=== PATIENT | male | born 1945 | race Native Hawaiian/Other Pacific Islander ===

== ENCOUNTER 2019-04-07 04:02 | Outpatient (CLI) | payer OTHER, MEDICARE ==
[2019-04-07] MEDS ORDERED: ANORO ELLIPTA 61 AER INH (08:47)
[2019-04-07] MEDS ORDERED: LISI5TAB10 PO (08:48)
[2019-04-07] MEDS ORDERED: LOVA20TA PO (08:48)
[2019-04-07] MEDS ORDERED: CARV12.5 PO (08:49)
[2019-04-07] MEDS ORDERED: EUTHYROX88 MCG PO (08:49)
[2019-04-07] MEDS ORDERED: SPIRONOLACT25 MG PO (08:49)
[2019-04-07] MEDS ORDERED: PAROXETINE30 MG PO (08:50)
[2019-04-07] MEDS ORDERED: POT CL MICRO20 MEQ PO (08:50)
[2019-04-07] MEDS ORDERED: TERAZOSIN10 MG PO (08:51)
[2019-04-07] MEDS ORDERED: DOCU100C10 PO (08:51)
[2019-04-07] MEDS ORDERED: CARV6.25 PO (08:52)
[2019-04-07] MEDS ORDERED: ALBUTEROL0.083 % INH (08:53)
[2019-04-07] MEDS ORDERED: ASPIRIN 81 LOW81 MG PO (08:54)
[2019-04-07] MEDS ORDERED: PSYL0.52C PO (08:56)
[2019-04-07] MEDS ORDERED: [UNRECOGNIZED DRUG - CODE] PO (08:56)
[2019-04-07] MEDS ORDERED: MELATONIN5 M6 PO (08:57)
[2019-04-07] MEDS ORDERED: ALBU90AE13 INH (08:58)
[2019-04-13] MEDS ORDERED: LISI5TAB10 PO (11:32)
[2019-04-13] MEDS ORDERED: DOCU100C10 PO (11:33)
[2019-04-13] MEDS ORDERED: LEVAQUIN250 MG PO (11:35)
[2019-04-13] MEDS ORDERED: FURO40TA93 PO (11:35)
== END 2019-04-07 04:04 | disposition short-term general hospital (02) ==
LOC: AMB 04:02
DX: R10.84 Generalized abdominal pain (principal)
CPT/HCPCS: A0425; A0426

== ENCOUNTER 2019-04-07 04:14 | Inpatient (IN) | payer OTHER, MEDICARE ==
[2019-04-07] VITALS (8 sets, daily range): BP systolic 148–196; BP diastolic 79–98; TEMP 98.1–99.2; Ht 172.7 cm; Wt 83.9 kg
[~2019-04-07] VITALS: Ht 172.7 cm; Wt 83.9 kg
[2019-04-07 04:52] LABS: PLATELET COUNT 170 K/uL (142-355)
[2019-04-07 05:07] LABS: POTASSIUM 3.9 mmol/L (3.6-5.2); SODIUM 138 mmol/L (136-145)
[2019-04-07 05:41] LABS: PARTIAL THROMBOPLASTIN TIME 28.1 SECONDS (24.5-33.6)
[2019-04-07] MEDS ORDERED: ANORO ELLIPTA 61 AER INH (08:47)
[2019-04-07] MEDS ORDERED: LOVA20TA PO (08:48)
[2019-04-07] MEDS ORDERED: LISI5TAB10 PO (08:48)
[2019-04-07] MEDS ORDERED: SPIRONOLACT25 MG PO (08:49)
[2019-04-07] MEDS ORDERED: CARV12.5 PO (08:49)
[2019-04-07] MEDS ORDERED: EUTHYROX88 MCG PO (08:49)
[2019-04-07] MEDS ORDERED: PAROXETINE30 MG PO (08:50)
[2019-04-07] MEDS ORDERED: POT CL MICRO20 MEQ PO (08:50)
[2019-04-07] MEDS ORDERED: DOCU100C10 PO (08:51)
[2019-04-07] MEDS ORDERED: TERAZOSIN10 MG PO (08:51)
[2019-04-07] MEDS ORDERED: CARV6.25 PO (08:52)
[2019-04-07] MEDS ORDERED: ALBUTEROL0.083 % INH (08:53)
[2019-04-07] MEDS ORDERED: ASPIRIN 81 LOW81 MG PO (08:54)
[2019-04-07] MEDS ORDERED: PSYL0.52C PO (08:56)
[2019-04-07] MEDS ORDERED: [UNRECOGNIZED DRUG - CODE] PO (08:56)
[2019-04-07] MEDS ORDERED: MELATONIN5 M6 PO (08:57)
[2019-04-07] MEDS ORDERED: ALBU90AE13 INH (08:58)
--- NOTE | 2019-04-07 16:53 | NUR ---
HHN GIVEN AT 1324. PATIENT FOUND ON 3LPM WITH SPO2 OF 88%. AFTER HHN, NC WAS INCREASED TO 6LPM. SPO2 WAS ONLY MEASURING 81%/ HR 92. PATIENT WAS RECHECKED AT 1351 AND SPO2 WAS FOUND TO BE 78% ON 6LPM/HR 93. PATIENT STATES THAT HE WEARS 5LPM HOME O2 AND NORMALLY SATS BETWEEN 90-94% AT HOME. PATIENT WAS PLACED ON NONREBREATHER AT 15LPM TO GET A SPO2 OF 92%. DR. Alfonso GRIFFIN NOTIFIED. THE PATIENT WAS PLACED ON CONTINUOUS PULSE OX.
--- NOTE | 2019-04-08 00:15 | NUR ---
NG TUBE REPLACED WITH 16 NG TUBE DUE TO DETAINEE PULLING NG TUBE OUT WHEN TUBING BECAME TWISTED IN IV AND O2 SAT MONITORING TUBING. PT TOLERATED PROCEDURE WELL.XRAY NOTIFIED AND AND AWAITNG XRAY TO CONFIRM PLACEMENT AT PRESENT.
--- NOTE | 2019-04-08 01:05 | NUR ---
DR. OAKES NOTIFIED OF NG TUBE PLACEMENT XRAY READING, TO ADVANCE NG TUBE 5 CM. AND DEVELOPING R. BASILAR INFILTRATE. T.O. PER DR. OAKES RECEIVED FOR ROCEPHIN 1 GRAM IV DAILY. ORDERS NOTED AND FOLLOWED THROUGH.
--- NOTE | 2019-04-08 03:35 | NUR ---
XRAY IN PT'S ROOM TO CHECK PLACEMENT OF NG TUBE.
--- NOTE | 2019-04-08 03:50 | NUR ---
PT C/O SOB, RESPIRATORY NOTIFIED AND BREATHING TX COMPLETED,
[2019-04-08 03:55] VITALS: BP 173/93; TEMP 98.7
[2019-04-08 05:19] LABS: PLATELET COUNT 155 K/uL (142-355)
[2019-04-08 05:51] LABS: POTASSIUM 3.7 mmol/L (3.6-5.2)
[2019-04-08 08:00] VITALS: BP 167/98; TEMP 98
--- NOTE | 2019-04-08 09:37 | NUR ---
DR. ELIZ GRIFFIN HERE ASSESSING PATIENT REGARDING SBO. NEW ORDERS WERE GIVEN TO CLAMP NG TUBE FOR 3 HOURS AND THEN RELEASE AND PLACED BACK TO [facility] AND MONITOR PATIENT FOR ANY NAUSEA OR VOMITING. 0945-PATIENT NG TUBE CLAMPED. 1030-PATIENT ASSESSED AND HE DENIES ANY N/V. 1300- NG TUBE CONNECTED TO [facility]CS 1330- NG TUBE CLAMPED. PATIENT MONITORED FOR ANY NAUSEA. 1541- CALLED AND SPOKE TO AND NEW ORDERS WERE GIVEN TO DISCONTINUE NG TUBE AND START PATIENT ON A CLEAR LIQUID DIET. 1550-NG TUBE REMOVED WITHOUT DIFFICULTY. PATIENT GIVEN GATORADE, JELLO AND APPLE JUICE TO DRINK. PATIENT TOLERATED WELL.
--- NOTE | 2019-04-08 11:50 | NUR ---
SPOKE WITH PATIENT CONCERNING HOME HEALTH SERVICES. 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
[2019-04-08 12:00] VITALS: BP 158/89; TEMP 98.2
[2019-04-08 16:00] VITALS: BP 169/99; TEMP 97.7
[2019-04-08 19:53] VITALS: BP 154/82; TEMP 98.5
[2019-04-09] VITALS: BP 140/84; TEMP 97.4
--- NOTE | 2019-04-09 00:30 | NUR ---
PT TANGLED UP IN IV TUBING AND PULLED IV OUT, IV SITE OBTAINED X NUMEROUS ATTEMPTS WITH 18 GUAGE TO LEFT HAND BY MELONY ESQUEDA RN. IVF'S OF D 5 06/12 NS RESTARTED @ 125 CC/HR W/O DIFF. PT TOLERATED WELL.
--- NOTE | 2019-04-09 03:45 | NUR ---
PT NOTED WITH LABORED BREATHING AT THIS TIME, REQUESTED BREATHING TX.O2 SAT 96%-100%. UPPER LUNG QUIÑONEZ DIMINISHED AT PRESENT.
[2019-04-09 04:00] VITALS: BP 138/82; TEMP 98.5
--- NOTE | 2019-04-09 04:05 | NUR ---
PT. LABORED BREATHING INTENSIFIED FOLLOWING BREATHING TX, DR OAKES NOTIFIED OF PT'S CONDITION, AND IS AT PT'S BEDSIDE.RECEIVED V.O. FOR LASIX 20MG IV AND ABG NOW.
--- NOTE | 2019-04-09 04:45 | NUR ---
DR. OAKES NOTIFIED OF PT'S ABG RESULTS AND V.O. RECEIVED FOR CHEST XRAY, CBC, CMP, AND LACTIC THIS AM.
[2019-04-09 05:38] LABS: PLATELET COUNT 154 K/uL (142-355)
[2019-04-09 08:00] VITALS: BP 177/83; TEMP 97.5
[2019-04-09 12:00] VITALS: BP 145/94; TEMP 98
[2019-04-09 16:00] VITALS: BP 168/90; TEMP 97.4
[2019-04-09 20:00] VITALS: BP 161/92; TEMP 97.8
[2019-04-10] VITALS: BP 153/89; TEMP 96.8
[2019-04-10 03:53] VITALS: BP 156/92; TEMP 97.5
[2019-04-10 05:37] LABS: POTASSIUM 3.4 mmol/L (3.6-5.2)
--- NOTE | 2019-04-10 07:41 | NUR ---
PATIENT IS RESTING WITH EYES CLOSED UPON ENTERING ROOM. PATIENT AROUSES TO VERBAL COMMAND. SHIFT ASSESSMENT COMPLETED.PATIENT DENIES ANY PAIN. PATIENT REPORTS NO BOWEL MOVEMENT SINCE 04/06/19. PATIENT HAS AN IV 22G TO THE LEFT HAND INTACT WITH NO S/S OF INFILTRATION OR PHLEBITIS NOTED. PATIENT REMAINS ON NON REBREATHER AT THIS TIME WITH O2 SATS AT 96%. FALL PRECAUTIONS IN PLACE WITH BED IN LOWEST POSITION, AND LOCKED IN PLACE, SIDERAILS UP X2.
[2019-04-10 08:00] VITALS: BP 140/79; TEMP 97.6
[2019-04-10 12:00] VITALS: BP 172/101; TEMP 97.7
[2019-04-10] MEDS ORDERED: IPRATROPIUM/ INH (14:54)
[2019-04-10] MEDS ORDERED: LEVAQUIN 500MG TAB PO (14:54)
[2019-04-10] MEDS ORDERED: PRED10TA27 PO (14:57)
[2019-04-13] MEDS ORDERED: LISI5TAB10 PO (11:32)
[2019-04-13] MEDS ORDERED: DOCU100C10 PO (11:33)
[2019-04-13] MEDS ORDERED: LEVAQUIN250 MG PO (11:35)
[2019-04-13] MEDS ORDERED: FURO40TA93 PO (11:35)
== END 2019-04-10 16:15 | disposition home or self-care (01) | DRG 390 ==
LOC: ED 04:14 → MED/SURG 09:05
PROVIDERS: Hospitalist; Internal Medicine; Student in an Organized Health Care Education/Training Program; ADMIT Emergency Medicine
DX: K56.690 Other partial intestinal obstruction (principal); I10 Essential (primary) hypertension; K21.9 Gastro-esophageal reflux disease without esophagitis; J84.10 Pulmonary fibrosis, unspecified; J44.9 Chronic obstructive pulmonary disease, unspecified; E78.00 Pure hypercholesterolemia, unspecified; M15.8 Other polyosteoarthritis; R51 Headache; E83.42 Hypomagnesemia; E83.51 Hypocalcemia; D63.8 Anemia in other chronic diseases classified elsewhere
CPT/HCPCS: 36415; 36600; 43754; 80048; 80053; 81000; 82150; 82550; 82805; 83605; 83690; 83735; 84484; 85027; 85610; 85730; 93005; 94640; 94664; 94760; 96360; 96361; 96375; 96376; 99284; J0456; J0610; J0696; J1650; J1885; J1940; J2060; J2270; J2405; J2930; J3475; J3490; Q9963

== ENCOUNTER 2019-04-11 14:04 | Outpatient (CLI) | payer OTHER, MEDICARE ==
[~2019-04-11 14:04] MED LIST: ALBU90AE13 INH; ALBUTEROL0.083 % INH; ANORO ELLIPTA 61 AER INH; ASPIRIN 81 LOW81 MG PO; CARV12.5 PO; CARV6.25 PO; DOCU100C10 PO; EUTHYROX88 MCG PO; IPRATROPIUM/ INH; LEVAQUIN 500MG TAB PO; LISI5TAB10 PO; LOVA20TA PO; MELATONIN5 M6 PO; PAROXETINE30 MG PO; POT CL MICRO20 MEQ PO; PRED10TA27 PO; PSYL0.52C PO; SPIRONOLACT25 MG PO; TERAZOSIN10 MG PO; [UNRECOGNIZED DRUG - CODE] PO
[2019-04-13] MEDS ORDERED: LISI5TAB10 PO (11:32)
[2019-04-13] MEDS ORDERED: DOCU100C10 PO (11:33)
[2019-04-13] MEDS ORDERED: LEVAQUIN250 MG PO (11:35)
[2019-04-13] MEDS ORDERED: FURO40TA93 PO (11:35)
== END 2019-04-11 14:05 | disposition short-term general hospital (02) ==
LOC: AMB 14:04
DX: R06.89 Other abnormalities of breathing (principal)
CPT/HCPCS: A0425; A0427

== ENCOUNTER 2019-04-11 14:09 | Observation (INO) | payer OTHER, MEDICARE ==
[~2019-04-11] VITALS: Ht 172.7 cm; Wt 81.2 kg
[2019-04-11 14:09] VITALS: TEMP 97.5
[2019-04-11 15:49] LABS: PLATELET COUNT 212 K/uL (142-355)
[2019-04-11 15:53] LABS: POTASSIUM 3.9 mmol/L (3.6-5.2)
[2019-04-12] VITALS (8 sets, daily range): BP systolic 124–182; BP diastolic 79–100; TEMP 97.5–98.7; Ht 172.7 cm; Wt 81.2 kg
[2019-04-13 04:00] VITALS: BP 152/88; TEMP 98.3
[2019-04-13 08:00] VITALS: BP 149/88; TEMP 97.6
[2019-04-13 10:02] LABS: POTASSIUM 3.2 mmol/L (3.6-5.2)
[2019-04-13] MEDS ORDERED: LISI5TAB10 PO ×2 (11:32)
[2019-04-13] MEDS ORDERED: DOCU100C10 PO ×2 (11:33)
[2019-04-13] MEDS ORDERED: FURO40TA93 PO ×2 (11:35)
[2019-04-13] MEDS ORDERED: LEVAQUIN250 MG PO ×2 (11:35)
[2019-04-13 12:00] VITALS: BP 161/88; TEMP 98.6
== END 2019-04-13 12:26 | disposition home or self-care (01) ==
LOC: ED 14:15 → MED/SURG 18:55
PROVIDERS: Family Medicine; ADMIT Internal Medicine
DX: I11.0 Hypertensive heart disease with heart failure (principal); R41.82 Altered mental status, unspecified; R06.09 Other forms of dyspnea; I50.9 Heart failure, unspecified; E03.8 Other specified hypothyroidism; K21.9 Gastro-esophageal reflux disease without esophagitis; K59.09 Other constipation; F41.8 Other specified anxiety disorders; J84.10 Pulmonary fibrosis, unspecified
CPT/HCPCS: 36415; 80048; 80053; 81000; 82948; 83880; 85027; 93005; 94640; 94664; 94760; 96374; 96375; 99220; 99283; 99284; G0378; J1650; J1940; J2060; J2930; J3490

== ENCOUNTER 2019-04-19 08:44 | Outpatient (CLI) | payer OTHER, MEDICARE ==
[~2019-04-19 08:44] MED LIST changes: +FURO40TA93 PO; +LEVAQUIN250 MG PO
[2019-04-19 09:27] LABS: POTASSIUM 4.2 mmol/L (3.6-5.2)
[2019-04-19 10:08] LABS: PLATELET COUNT 215 K/uL (142-355)
== END 2019-04-19 22:13 | disposition home or self-care (01) ==
LOC: LABW 08:44
PROVIDERS: Internal Medicine
DX: E03.8 Other specified hypothyroidism (principal); I50.9 Heart failure, unspecified
CPT/HCPCS: 36415; 80053; 80061; 81000; 83880; 84439; 84443; 85027; 85379

== ENCOUNTER 2019-05-21 14:52 | Outpatient (CLI) | payer OTHER, MEDICARE | END 2019-05-21 21:31 | disposition home or self-care (01) | LOC: RESP 14:52 | DX: J44.9 Chronic obstructive pulmonary disease, unspecified (principal) ==

== ENCOUNTER 2019-06-30 04:47 | Outpatient (CLI) | payer OTHER, MEDICARE | END 2019-06-30 04:50 | disposition short-term general hospital (02) | LOC: AMB 04:47 | DX: R10.84 Generalized abdominal pain (principal); R11.0 Nausea | CPT/HCPCS: A0425; A0427 ==

== ENCOUNTER 2019-06-30 04:52 | Emergency (ER) | payer OTHER, MEDICARE ==
[~2019-06-30] VITALS: Ht 172.7 cm; Wt 81.2 kg
[2019-06-30 05:30] LABS: PLATELET COUNT 272 K/uL (142-355)
[2019-06-30 05:39] LABS: POTASSIUM 4.2 mmol/L (3.6-5.2)
[2019-06-30 11:30] VITALS: TEMP 97.3
[2019-06-30 12:00] VITALS: BP 103/52
== END 2019-06-30 12:27 | disposition short-term general hospital (02) ==
LOC: ED 04:52
PROVIDERS: Family Medicine
PROC: 0DH57BZ Insertion of Airway into Esophagus, Via Natural or Artificial Opening (ICD-10-PCS; principal; 2019-06-30)
DX: R10.84 Generalized abdominal pain (principal); K56.609 Unspecified intestinal obstruction, unspecified as to partial versus complete obstruction
CPT/HCPCS: 36415; 43754; 80053; 82150; 83690; 85027; 93005; 96360; 96365; 96366; 96375; 99284; J1170; J1885; J1956; J2175; J2405; J3490

== ENCOUNTER 2019-08-02 17:42 | Inpatient (IN) | payer OTHER ==
[~2019-08-02] VITALS: Ht 172.7 cm; Wt 71.3 kg
[2019-08-02 23:23] VITALS: BP 168/88; TEMP 97.6; Ht 172.7 cm; Wt 71.3 kg
[2019-08-03 20:00] VITALS: BP 180/98; TEMP 98.4
[2019-08-04 08:00] VITALS: BP 187/96; BP 192/102; TEMP 97.1
[2019-08-04] MEDS ORDERED: CORDARONE 200MG TAB PO (11:46)
== END 2019-08-04 15:25 | disposition home health service (06) | DRG 189 ==
LOC: MED/SURG 17:42
PROVIDERS: ADMIT Internal Medicine
DX: J96.21 Acute and chronic respiratory failure with hypoxia (principal); J18.8 Other pneumonia, unspecified organism; I50.32 Chronic diastolic (congestive) heart failure; J44.0 Chronic obstructive pulmonary disease with (acute) lower respiratory infection; J84.10 Pulmonary fibrosis, unspecified; R13.19 Other dysphagia; I48.91 Unspecified atrial fibrillation; I11.0 Hypertensive heart disease with heart failure
CPT/HCPCS: 94640; 94664; 94760; J2060; J2920